=== PATIENT | male | born 1965 | race Caucasian/White ===

== ENCOUNTER 2024-04-02 08:19 | Day surgery (SDC) | payer BC ==
[~2024-04-02] VITALS: Ht 167.6 cm; Wt 127.5 kg
[~2024-04-02 08:19] MED LIST: ATEN50TA2 PO; CETI10CA13 PO; CHOL50003 PO; CYAN-11 PO; CYCL-707 PO; GABA-1172 PO; HYDR50TAB PO; LOSA50TA28 PO; POTA595T16 PO; UNRESOLVED CLARIFICATION ENTRY XX SCH; VITACAP8 PO
[2024-04-02] MEDS ORDERED: MIDAZOLAM INJ 2MG/2ML VIAL As Ordered ONE (10:29)
[2024-04-02] MEDS ORDERED: LIDOCAINE 2% 100MG/5ML SDV (FOR ANES.) As Ordered ONE (10:29)
[2024-04-02] MEDS ORDERED: ONDANSETRON 4MG 2ML VIAL As Ordered ONE (10:29)
[2024-04-02] MEDS ORDERED: propofoL 200 MG/20 ML VIAL As Ordered ONE (10:29)
[2024-04-02] MEDS ORDERED: KETOROLAC 60MG 2ML VIAL As Ordered ONE (10:30)
[2024-04-02] MEDS ORDERED: fentaNYL 100 MCG/2 ML INJECTION As Ordered ONE (10:30)
[2024-04-02] MEDS: ceFAZolin SOD 1 GM in DEXTROSE 5% (D5W) ADV/MINI-BAG 50 ML IV ONE (10:45)
[2024-04-02] MEDS: ceFAZolin SOD 2 GM in IV 1 EA IV ONE (10:45)
[2024-04-02] MEDS ORDERED: ACETAMINOPHEN 1000MG 100ML IV BAG As Ordered ONE (10:57)
[2024-04-02] MEDS ORDERED: LABETALOL 100MG/20ML VIAL As Ordered ONE (11:12)
[2024-04-02] MEDS: ISOVUE-300 61% 100ML VIAL As Ordered ONE (11:50)
[2024-04-02] MEDS ORDERED: diphenhydrAMINE 50MG/ML VIAL IV PRN (11:55)
[2024-04-02] MEDS ORDERED: ONDANSETRON 4MG 2ML VIAL IV PRN (11:55)
[2024-04-02] MEDS ORDERED: METOCLOPRAMIDE INJ 10MG/2ML VIAL IV PRN (11:55)
[2024-04-02] MEDS ORDERED: MEPERIDINE 25 MG/ML 1ML VIAL IV PRN (11:55)
[2024-04-02] MEDS ORDERED: HYDR-3713 PO (12:05)
[2024-04-02] MEDS ORDERED: PYRI1TAB5 PO (12:05)
[2024-04-02] MEDS ORDERED: MACR100C43 PO (12:05)
[2024-04-02] MEDS ORDERED: OXYB5TAB14 PO (12:05)
[2024-04-02] MEDS ORDERED: hydrALAZINE 20MG/ML 1ML VIAL As Ordered ONE (12:15)
[2024-04-02] MEDS: hydrALAZINE 20MG/ML 1ML VIAL IV PRN (12:21)
[2024-04-02] MEDS: oxyCODONE 5MG TAB PO PRN (12:25)
[2024-04-02] MEDS: fentaNYL 100 MCG/2 ML INJECTION IV PRN (12:53)
[2024-04-02 14:53] VITALS: BP 152/91; TEMP 96.8; O2SAT 94
== END 2024-04-02 14:56 | disposition home or self-care (01) ==
LOC: M SDC 08:19
PROVIDERS: ATTEND Urology
DX: N20.0 Calculus of kidney (principal); I10 Essential (primary) hypertension; E11.9 Type 2 diabetes mellitus without complications; Z79.899 Other long term (current) drug therapy; Z98.84 Bariatric surgery status; F17.220 Nicotine dependence, chewing tobacco, uncomplicated
CPT/HCPCS: 52356; 76000; 82365; C1769; C2617; J0131; J0360; J0690; J1100; J1885; J1920; J2250; J2405; J3010; Q9967